=== PATIENT | male | born 1960 | race Caucasian/White ===

== ENCOUNTER → 2016-12-17 | Outpatient (CLI) | payer OTHER | LOC: CIMAGING 15:42 | PROVIDERS: ATTEND Family Medicine | DX: R80.9 Proteinuria, unspecified (principal); R93.421 Abnormal radiologic findings on diagnostic imaging of right kidney; R93.41 Abnormal radiologic findings on diagnostic imaging of renal pelvis, ureter, or bladder | CPT/HCPCS: 76770-PO ==